=== PATIENT | female | born 1955 | race Two or more races ===

== ENCOUNTER 2017-06-09 12:21 | Day surgery (SDC) | payer MEDICARE, OTHER ==
[2017-06-09 13:15] VITALS: BP 129/59; PULSE 68; RESP 12; TEMP 97.1
[2017-06-09 13:55] VITALS: BP 113/77; PULSE 71; RESP 20; TEMP 97.8; O2SAT 96
[2017-06-09] MEDS ORDERED: LIDOCAINE HCL 1% PF 30 ML VIAL ONE (13:56)
[2017-06-09 14:10] VITALS: BP 120/77; PULSE 77; RESP 20; TEMP 97.8; O2SAT 96
--- NOTE | 2017-06-09 14:30 | RADRPT ---
EXAM DATE/TIME: 06/09/2017 13:11 [place] COMPARISON: No previous studies available for comparison. EXTERNAL COMPARISON: [facility], CT Soft Tissue Neck, May 16 2017. [facility], US soft tissue neck, April 28, 2017. INDICATIONS : Left partotid mass. MEDICAL HISTORY : HIV. Hyperlipoproteinemia. Kidney Cancer. Vitamin D Deficiency. SURGICAL HISTORY : Breast biopsy. ENCOUNTER: Initial ACUITY: PAIN SCORE: LOCATION: Left neck ORGAN: Left parotid gland SPECIMENS: Two core specimen(s) submitted for pathologic evaluation. DEVICE: 18 gauge Temno needle Post procedure scanning reveals no hematoma or other complication. The possibility does exist that the tissue obtained will be non-diagnostic. If the sample is non-prachi gnostic a repeat biopsy or surgical biopsy may need to be performed. TECHNIQUE: 1. Ultrasound guidance for needle biopsy. 2. Needle biopsy. The risks, benefits and alternatives to the procedure were explained and verbal and written consent w as obtained. The site was prepped in sterile fashion. Full sterile technique was used, including ca p, mask, sterile gloves and gown and a large sterile sheet. Hand hygiene and 2% chlorhexidine and/or betadine/alcohol prep was utilized per protocol for cutaneous antisepsis. The skin and subcutaneous tissues were infiltrated with local anesthetic solution. Sterile gel and sterile probe cover were u tilized for ultrasound guidance. With the patient on the ultrasound table, images were obtained. A needle was advanced into the identified target and the number of specimens as above obtained and stanley bmitted for pathologic evaluation. The patient tolerated the procedure well and left the ultrasound suite in stable condition. CONCLUSION: Uncomplicated ultrasound guided needle biopsy. Rey Almaguer MD on June 09, 2017 at 14:27 Board Certified Radiologist. This report was verified electronically.
== END 2017-06-09 14:54 | disposition home or self-care (01) ==
LOC: HRAD 12:21 → HRIP 12:26 → HRAD 14:54
PROVIDERS: ATTEND Specialist
DX: D11.0 Benign neoplasm of parotid gland (principal); E78.5 Hyperlipidemia, unspecified; Z85.528 Personal history of other malignant neoplasm of kidney; E55.9 Vitamin D deficiency, unspecified
CPT/HCPCS: 42400; 76942; 88305